=== PATIENT | female | born 1980 | race Two or more races ===

== ENCOUNTER 2023-02-11 10:39 | Emergency (ER) | payer OTHER ==
[~2023-02-11] VITALS: Ht 154.9 cm; Wt 54.4 kg
[2023-02-11] MEDS ORDERED: MECLIZINE HCL12.5 MG PO (15:40)
== END 2023-02-11 15:44 | disposition home or self-care (01) ==
LOC: ER 10:39
DX: R42 Dizziness and giddiness (principal); R53.81 Other malaise; Z88.6 Allergy status to analgesic agent